=== PATIENT | female | born 1985 ===

== ENCOUNTER 2023-08-26 08:52 | Emergency (ER) | payer BC ==
[2023-08-26] MEDS ORDERED: Dexamethasone 10 MG/ML SDV PO ONE (09:45)
[2023-08-26 10:03] LABS: CORONAVIRUS COVID-19 NAA NEGATIVE (NEGATIVE)
[2023-08-26 10:46] LABS: INFLUENZA A NAA NEGATIVE (NEGATIVE); INFLUENZA B NAA POSITIVE (NEGATIVE)
[2023-08-26 11:06] VITALS: BP 112/75; PULSE 82
== END 2023-08-26 11:05 | disposition home or self-care (01) ==
LOC: MW.ED 08:52
DX: J10.1 Influenza due to other identified influenza virus with other respiratory manifestations (principal); E66.9 Obesity, unspecified; Z88.2 Allergy status to sulfonamides; Z20.822 Contact with and (suspected) exposure to COVID-19; Z68.31 Body mass index [BMI] 31.0-31.9, adult
CPT/HCPCS: 0240U; 87651; 99283; J8540